=== PATIENT | male | born 1970 | race Caucasian/White ===

== ENCOUNTER 2022-05-23 07:26 | Emergency (ER) | payer OTHER, BC ==
[2022-05-23 07:45] VITALS: BP 148/101; PULSE 96; RESP 16; TEMP 98.9; BMI 31.5
[2022-05-23] MEDS ORDERED: IBUPROFEN 600 MG TABLET (FP) PO ONE ×2 (08:06→08:12)
== END 2022-05-23 09:03 | disposition home or self-care (01) ==
LOC: FER 07:26
DX: M66.821 Spontaneous rupture of other tendons, right upper arm (principal)
CPT/HCPCS: 73030-TC-RT-FY; 76882-TC-RT; 99284-25

== ENCOUNTER 2024-02-01 13:14 | Emergency (ER) | payer BC ==
[2024-02-01 13:28] VITALS: BP 178/112; PULSE 90; RESP 17; TEMP 97.9; BMI 31.8
[2024-02-01] MEDS ORDERED: FAMOTIDINE 20 MG/50 ML IVPB 20 MG/50 ML MG IVPB ONE (14:14)
[2024-02-01] MEDS ORDERED: ONDANSETRON 4 MG/2 ML VIAL ONE (14:14)
[2024-02-01] MEDS ORDERED: MAG HYDROX/AL HYDROX/SIMETH 30 ML UNIT-DOSE CUP ONE (14:15)
[2024-02-01] MEDS ORDERED: ACETAMINOPHEN INJECTION 100 ML ONE (14:15)
[2024-02-01] MEDS: SODIUM CHLORIDE 0.9% 500 ML INFUS.BAG IV ONE (14:30)
[2024-02-01] MEDS: ONDANSETRON 4 MG/2 ML VIAL IVPUSH ONE (14:35)
[2024-02-01] MEDS: FAMOTIDINE 20 MG/50 ML IVPB 20 MG/50 ML MG IVPB ONE (14:40)
[2024-02-01 14:57] LABS: HEMATOCRIT 50.3 % (35.4-49); HEMOGLOBIN 16.4 G/dL (11.7-16.9); MCH 31.8 pg (25.7-33.7); MCHC 32.5 g/dl (32.0-35.9); MEAN CELL VOLUME 97.6 fl (80-96); MEAN PLT VOLUME 8.8 fl (7.5-11.1); PLATELET COUNT 246.6 10^3/uL (134-434); RBC 5.15 10^6/uL (4.00-5.60); WHITE BLOOD COUNT 10.5 10^3/uL (4.0-10.8)
[2024-02-01] MEDS: ACETAMINOPHEN 1000 MG/100 ML BAG IVPB ONE (15:10)
[2024-02-01 15:13] LABS: ALBUMIN 4.6 g/dl (3.4-5.0); ALK PHOS 55 U/L (45-117); ANION GAP 10 mmol/L (4-13); BILIRUBIN,TOTAL 0.8 mg/dl (0.2-1); CALCIUM 9.6 mg/dl (8.5-10.1); CHLORIDE 105 mmol/L (98-107); CO2 25 mmol/L (21-32); CREATININE 0.8 mg/dl (0.6-1.3); GLUCOSE,RANDOM 95 mg/dl (74-106); SGOT/AST 18 U/L (15-37); SGPT/ALT 18 U/L (7-52); SODIUM 140 mmol/L (136-145); TOT PROT 7.2 g/dl (6.4-8.2)
[2024-02-01] MEDS: MAG HYDROX/AL HYDROX/SIMETH 30 ML UNIT-DOSE CUP PO ONE (15:15)
[2024-02-01 15:17] LABS: PLATELET ESTIMATE ADEQUATE
[2024-02-01 16:04] LABS: EPITHELIAL CELLS 0-5 /hpf
== END 2024-02-01 16:49 | disposition home or self-care (01) ==
LOC: FER 13:14
PROC: 3E033GC Introduction of Other Therapeutic Substance into Peripheral Vein, Percutaneous Approach (ICD-10-PCS; principal; 2024-02-01)
PROC: 3E033GC Introduction of Other Therapeutic Substance into Peripheral Vein, Percutaneous Approach (ICD-10-PCS; 2024-02-01)
PROC: 3E033NZ Introduction of Analgesics, Hypnotics, Sedatives into Peripheral Vein, Percutaneous Approach (ICD-10-PCS; 2024-02-01)
DX: M54.50 Low back pain, unspecified (principal); R10.13 Epigastric pain; R11.0 Nausea; R07.2 Precordial pain
CPT/HCPCS: 36415; 76700-TC; 80053; 81003; 81015; 83690; 84484; 85027; 93005; 99285-25; J0131

== ENCOUNTER 2024-11-28 17:29 | Observation (INO) | payer BC ==
[2024-11-28] MEDS ORDERED: ONDANSETRON 4 MG/2 ML VIAL ONE (18:08)
[2024-11-28] MEDS ORDERED: FAMOTIDINE 20 MG/50 ML IVPB 20 MG/50 ML MG IVPB ONE (18:08)
[2024-11-28] MEDS ORDERED: ACETAMINOPHEN INJECTION 100 ML ONE (18:09)
[2024-11-28] MEDS: LACTATED RINGERS SOLUTION 1000 ML INFUS.BAG IV ONE (18:15)
[2024-11-28] MEDS: ONDANSETRON 4 MG/2 ML VIAL IVPUSH ONE (18:15)
[2024-11-28] MEDS: ACETAMINOPHEN 1000 MG/100 ML BAG IVPB ONE (18:18)
[2024-11-28 18:23] LABS: ABSOLUTE IMMATURE GRANULOCYTES 0.02 x10^3/uL (0.0-0.031); BASOPHILS # 0.03 x10^3/uL (0.01-0.08); EOSINOPHIL % 0.4 % (0.8-7.0); EOSINOPHILS # 0.05 x10^3/uL (0.04-0.54); MCHC 35.2 g/dl (32.3-36.5); MEAN CELL VOLUME 93.6 fl (79.0-92.2); MEAN PLT VOLUME 10.1 fl (9.4-12.4); MONOCYTE # 0.76 x10^3/uL (0.30-0.82); MONOCYTE % 5.4 % (5.3-12.2); RDW 11.7 % (12.2-16.1)
[2024-11-28] MEDS: FAMOTIDINE 20 MG/50 ML IVPB 20 MG/50 ML MG IVPB ONE (18:25)
[2024-11-28 18:30] LABS: INR 0.97 (0.83-1.09); PROTHROMBIN TIME (PATIENT) 10.8 SEC (9.7-13.0)
[2024-11-28 18:33] LABS: ACTIVATED PTT 29.7 SECONDS (25.2-36.5)
[2024-11-28 18:42] LABS: ALK PHOS 62 U/L (45-117); CO2 28 mmol/L (21-32); CREATININE 1.0 mg/dl (0.6-1.3); GLUCOSE,RANDOM 123 mg/dl (74-106); SGOT/AST 22 U/L (15-37); SGPT/ALT 25 U/L (7-52); TOT PROT 7.4 g/dl (6.4-8.2)
[2024-11-28 19:19] LABS: BG HCT 48.0 % (35.4-49); VENOUS BASE EXCESS 1.7 mmol/L (-2-2); VENOUS O2 SATURATION 36.4 % (70-80); VENOUS PCO2 45.3 mmHg (38-52); VENOUS PH 7.395 (7.310-7.410)
[2024-11-28 19:36] LABS: N-TERMINAL BNP 339.6 pg/ml (5-125)
[2024-11-28] MEDS: morphine CARPU-JECT 4 MG/1 ML DISP.SYRIN IVPUSH ONE (19:59)
[2024-11-28] MEDS: LACTATED RINGERS SOLUTION 1,000 ML/1,000 ML INFUS.BAG IV SCH (20:00)
[2024-11-28 20:16] LABS: HIV INTERPRETATION NEGATIVE (NEGATIVE)
[2024-11-28 20:17] LABS: HCV DIAGNOSTIC IN-HOUSE W/RFLX NON-REACTIVE (NONREACTIVE)
[2024-11-28] MEDS ORDERED: ONDANSETRON 4 MG/2 ML VIAL IVPUSH PRN (22:00)
[2024-11-28] MEDS: ACETAMINOPHEN 1000 MG/100 ML BAG IVPB PRN (23:05)
[2024-11-29 00:46] VITALS: BMI 31.0
[2024-11-29 08:19] LABS: ABSOLUTE IMMATURE GRANULOCYTES 0.03 x10^3/uL (0.0-0.031); BASOPHILS # 0.04 x10^3/uL (0.01-0.08); EOSINOPHIL % 1.5 % (0.8-7.0); EOSINOPHILS # 0.18 x10^3/uL (0.04-0.54); MCHC 36.0 g/dl (32.3-36.5); MEAN CELL VOLUME 95.3 fl (79.0-92.2); MEAN PLT VOLUME 10.4 fl (9.4-12.4); MONOCYTE # 0.93 x10^3/uL (0.30-0.82); MONOCYTE % 7.6 % (5.3-12.2); RDW 11.7 % (12.2-16.1)
[2024-11-29 09:31] LABS: ALK PHOS 48.0 U/L (45-117); CO2 29.0 mmol/L (21-32); CREATININE 0.9 mg/dl (0.6-1.3); GLUCOSE,RANDOM 103.0 mg/dl (74-106); SGOT/AST 14.0 U/L (15-37); SGPT/ALT 16.0 U/L (7-52); TOT PROT 6.2 g/dl (6.4-8.2)
[2024-11-29] MEDS: HYDROCHLOROTHIAZIDE 25 MG TABLET (FP) PO SCH (10:04)
[2024-11-29] MEDS: PANTOPRAZOLE SODIUM 40 MG VIAL IVPUSH SCH (10:05)
[2024-11-29] MEDS: LOSARTAN POTASSIUM 50 MG TABLET PO SCH (10:05)
[2024-11-29] MEDS: ROSUVASTATIN CA 20 MG TABLET PO SCH (21:38)
[2024-11-30 03:19] VITALS: RESP 18
[2024-11-30 10:31] VITALS: PULSE 88
[2024-11-30 13:01] VITALS: BP 120/70; TEMP 99
== END 2024-11-30 16:35 | disposition home or self-care (01) ==
LOC: FER 17:29 → FM/S 21:22
PROVIDERS: ADMIT Hospitalist; ATTEND Student in an Organized Health Care Education/Training Program
PROC: 3E033GC Introduction of Other Therapeutic Substance into Peripheral Vein, Percutaneous Approach (ICD-10-PCS; principal; 2024-11-28)
PROC: 3E033NZ Introduction of Analgesics, Hypnotics, Sedatives into Peripheral Vein, Percutaneous Approach (ICD-10-PCS; 2024-11-28)
PROC: 3E0337Z Introduction of Electrolytic and Water Balance Substance into Peripheral Vein, Percutaneous Approach (ICD-10-PCS; 2024-11-28)
PROC: 3E033GC Introduction of Other Therapeutic Substance into Peripheral Vein, Percutaneous Approach (ICD-10-PCS; 2024-11-28)
DX: K85.90 Acute pancreatitis without necrosis or infection, unspecified (principal); K85.20 Alcohol induced acute pancreatitis without necrosis or infection; I10 Essential (primary) hypertension; E78.5 Hyperlipidemia, unspecified; Z86.16 Personal history of COVID-19
CPT/HCPCS: 36415; 71046-TC-FY; 76705-TC; 80053; 80307; 81003; 82010; 82803; 83605; 83690; 83735; 83880; 84100; 84484; 85025; 85610; 85730; 86803; 87086; 87389; 87637-QW; 93005; 99285-25; G0378